=== PATIENT | male | born 1970 | race Native Hawaiian/Other Pacific Islander ===

== ENCOUNTER 2018-09-02 14:30 | Emergency (ER) | payer OTHER, MEDICAID ==
[2018-09-02 15:20] VITALS: O2SAT 98
--- NOTE | 2018-09-02 15:43 | C.PDOC ---
Time Seen by Provider: 09/02/18 15:27 Chief Complaint (Nursing): Chest Pain Past Medical History Vital Signs: Last Vital Signs Temp 98.0 F 09/02/18 15:18 Pulse 83 09/02/18 15:18 Resp 16 09/02/18 15:18 BP 107/69 09/02/18 15:18 Pulse Ox 98 09/02/18 15:18 - Medical History PMH: Asthma - Social History Hx Alcohol Use: No Hx Substance Use: No - Immunization History Hx Tetanus Toxoid Vaccination: No Hx Influenza Vaccination: No Hx Pneumococcal Vaccination: No ED Course And Treatment O2 Sat by Pulse Oximetry: 98 Disposition - Disposition
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
[2018-09-02 17:08] VITALS: BP 133/81; PULSE 69; RESP 18; TEMP 98.2
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
== END 2018-09-02 17:08 | disposition home or self-care (01) ==
LOC: C.ER 14:30
DX: T14.8XXA Other injury of unspecified body region, initial encounter (principal); V49.9XXA Car occupant (driver) (passenger) injured in unspecified traffic accident, initial encounter